=== PATIENT | female | born 1960 | race Caucasian/White ===

== ENCOUNTER → 2022-03-27 | Outpatient (CLI) | payer BC ==
--- NOTE | 2022-03-30 09:18 | MM ---
Reason for Exam: Screening (asymptomatic). Last mammogram was performed 16 year(s) and 6 month(s) ago. Patient History: Menarche at age 20. First Full-Term at age 23. Postmenopausal. 10/01/2005, Cyst Aspiration on the Left side. 10/01/2005, Benign Core Biopsy on the left side. Sister had breast cancer. Sister had breast cancer, age 70. Risk Values: Trupti 5 year model risk: 6.1%. NCI Lifetime model risk: 28.9%. Prior Study Comparison: 09/28/2005 Bilateral Diagnostic Mammogram, [facility]. Tissue Density: The breast tissue is heterogeneously dense. This may lower the sensitivity of mammography. Findings: Analyzed By CAD. Mammotome biopsy clip in the left breast posterior upper outer aspect. Occasional scattered benign-appearing round calcifications throughout the bilateral breasts. No suspicious mass or distortion in either breast. Overall Assessment: Benign, BI-RAD 2 Management: Screening Mammogram of both breasts in 1 year. A clinical breast exam by your physician is recommended on an annual basis and results should be correlated with mammographic findings. Electronically signed and approved by: Jonathan Huang M.D.
== END | disposition home or self-care (01) ==
LOC: RADMAMWWP 15:08
PROVIDERS: ATTEND Family Medicine
DX: Z12.31 Encounter for screening mammogram for malignant neoplasm of breast (principal); Z78.0 Asymptomatic menopausal state; Z80.3 Family history of malignant neoplasm of breast
CPT/HCPCS: 77063; 77067

== ENCOUNTER → 2022-04-29 | Outpatient (CLI) | payer BC ==
--- NOTE | 2022-04-29 22:26 | CTL ---
EXAMINATION TYPE: CT Low Dose Lung DATE OF EXAM ORDERED: 04/29/2022 HISTORY: Long-term tobacco use. Lung cancer screening CT DLP: 61.[address] CTDI: 1.70 mGy Automated exposure control for dose reduction was used. SCREENING VISIT: Baseline COMPARISON: None. TECHNIQUE: Low dose computed tomography scan was performed through the chest at 1 mm thick sections a nd reconstructed images in multiple planes at 1 mm and [address] DIAGNOSTIC QUALITY: Satisfactory FINDINGS: LUNG NODULES: Present, detailed below: There is 5 mm lateral left lower lobe nodule axial image 221. There is subpleural 5 mm left lower lob e nodule axial image 223. No greater than 5 mm pulmonary nodules. LUNGS: COPD: Severity: [id number] Fibrosis: Severity: Mild bibasilar Lymph nodes: None Other findings: None RIGHT PLEURAL SPACE: Effusion: None Calcification: None Thickening: None Pneumothorax: None LEFT PLEURAL SPACE: Effusion: None Calcification: None Thickening: None Pneumothorax: None HEART: Heart Size: Mildly Enlarged Coronary Calcification: None Pericardial Effusion: None OTHER FINDINGS: Upper abdomen: None Bony thorax: There is S-shaped scoliotic curvature Supraclavicular region: None Other: Ascending aorta measures up to 3.8 cm in diameter. IMPRESSION: Mild to moderate emphysematous change with 2 adjacent small nodules in the left lower lob e. No greater than 6 mm in size pulmonary nodules seen. CT LUNG RAD AND CT CHEST RECOMMENDATION: Lung-Rad 2 Benign Appearance or Behavior: Continue annual sc reening with LDCT in 12 months. S Modifier (other clinically significant findings): None
== END | disposition home or self-care (01) ==
LOC: RADCTMAIN 16:24
PROVIDERS: ATTEND Family Medicine
DX: Z12.2 Encounter for screening for malignant neoplasm of respiratory organs (principal); Z87.891 Personal history of nicotine dependence; R91.8 Other nonspecific abnormal finding of lung field
CPT/HCPCS: 71271